=== PATIENT | male | born 1975 ===

== ENCOUNTER → 2018-12-13 10:09 | Outpatient (CLI) | payer OTHER ==
[~2018-12-13 10:09] MED LIST: CLONAZEPAM0.5 MG; KETO10TA2 PO; NEURONTIN300 MG; ORPH100T PO; OXYCONTIN; WELLBUTRIN XL300 MG
== END | disposition home or self-care (01) ==
LOC: LAB 10:09
DX: E78.2 Mixed hyperlipidemia (principal); Z80.0 Family history of malignant neoplasm of digestive organs; Z86.711 Personal history of pulmonary embolism; I26.99 Other pulmonary embolism without acute cor pulmonale; D50.8 Other iron deficiency anemias; D51.8 Other vitamin B12 deficiency anemias; I10 Essential (primary) hypertension; D68.51 Activated protein C resistance; D68.52 Prothrombin gene mutation; E72.11 Homocystinuria; E72.12 Methylenetetrahydrofolate reductase deficiency; D68.59 Other primary thrombophilia; I82.443 Acute embolism and thrombosis of tibial vein, bilateral

== ENCOUNTER 2019-01-11 12:07 | Outpatient (CLI) | payer OTHER | END 2019-01-11 12:12 | disposition home or self-care (01) | LOC: LAB 12:07 | DX: D50.8 Other iron deficiency anemias (principal); E72.11 Homocystinuria; Z80.0 Family history of malignant neoplasm of digestive organs; Z86.711 Personal history of pulmonary embolism; I26.99 Other pulmonary embolism without acute cor pulmonale; E78.2 Mixed hyperlipidemia; D51.8 Other vitamin B12 deficiency anemias; I10 Essential (primary) hypertension; E03.8 Other specified hypothyroidism; E06.3 Autoimmune thyroiditis; D51.1 Vitamin B12 deficiency anemia due to selective vitamin B12 malabsorption with proteinuria; D51.0 Vitamin B12 deficiency anemia due to intrinsic factor deficiency; I82.443 Acute embolism and thrombosis of tibial vein, bilateral ==